=== PATIENT | female | born 1970 | race African-American/Black ===

== ENCOUNTER 2022-09-02 11:30 | Emergency (ER) | payer OTHER, MEDICAID ==
[~2022-09-02] VITALS: Ht 172.7 cm; Wt 82.0 kg
[2022-09-02] MEDS ORDERED: KETOROLAC 60MG/2ML VIAL IM STA (15:05)
[2022-09-02 16:17] VITALS: BP 139/72
== END 2022-09-02 16:20 | disposition home or self-care (01) ==
LOC: ER 11:30
DX: M16.12 Unilateral primary osteoarthritis, left hip (principal); E78.00 Pure hypercholesterolemia, unspecified; Z88.0 Allergy status to penicillin; Z88.6 Allergy status to analgesic agent
CPT/HCPCS: 96372; 99283; J1885